=== PATIENT | female | born 1960 | race African-American/Black ===

== ENCOUNTER 2017-03-15 15:34 | Emergency (ER) | payer SELFPAY ==
[2017-03-15 18:24] VITALS: BP 140/74
[2017-03-15] MEDS ORDERED: OXYCODONE-ACETAMINOPHEN 5-325 MG TABLET PO ONE (18:39)
--- NOTE | 2017-03-15 18:40 | ER Document Report ---
HPI - HPI Patient complains to provider of: left leg pain Onset: Yesterday Onset/Duration: Persistent Quality of pain: Sharp Pain Level: 2 Context: Patient states she had done a lot of walking yesterday and then stepped into an elevator and felt a sudden pop in her left popliteal area. Patient states that the pain has persisted today. Patient states pain radiates into her left calf. Patient denies any chest pain or shortness of breath. Patient complains of increased pain with ambulation. Associated Symptoms: Other - Left calf and popliteal pain Exacerbated by: Movement, Walking Relieved by: Denies Similar symptoms previously: No Recently seen / treated by doctor: No - ROS ROS below otherwise negative: Yes Systems Reviewed and Negative: Yes All other systems reviewed and negative - CONSTITUTIONAL Constitutional: DENIES: Fever - NEURO Neurology: DENIES: Weakness - CARDIOVASCULAR Cardiovascular: DENIES: Chest pain - RESPIRATORY Respiratory: DENIES: Coughing - MUSCULOSKELETAL Musculoskeletal: REPORTS: Extremity pain. DENIES: Back Pain, Swelling - DERM Skin Color: Normal Skin Problems: None Past Medical History - General Information source: Patient - Social History Smoking Status: Never Smoker Chew tobacco use (# tins/day): No Frequency of alcohol use: None Drug Abuse: None Lives with: Family Family History: Reviewed & Not Pertinent - Past Medical History Cardiac Medical History: Reports: Hx Hypertension Endocrine Medical History: Reports: Hx Diabetes Mellitus Type 2 Renal/ Medical History: Denies: Hx Peritoneal Dialysis Surgical Hx: Negative - Immunizations Hx Diphtheria, Pertussis, Tetanus Vaccination: Yes Vertical Provider Document - CONSTITUTIONAL Agree With Documented VS: Yes Exam Limitations: No Limitations General Appearance: WD/WN, No Apparent Distress - INFECTION CONTROL TRAVEL OUTSIDE OF THE [place] IN LAST 30 DAYS: No - HEENT HEENT: Atraumatic, Normocephalic - NECK Neck: Normal Inspection - RESPIRATORY Respiratory: Breath Sounds Normal, No Respiratory Distress O2 Sat by Pulse Oximetry: 100 - CARDIOVASCULAR Cardiovascular: Regular Rate, Regular Rhythm, No Murmur Pulses: Normal: Posterior tibial, Dorsalis pedis - BACK Back: Normal Inspection - MUSCULOSKELETAL/EXTREMETIES Musculoskeletal/Extremeties: MAEW, Tender - Patient with exquisite tenderness with palpation of left popliteal area and left calf area, normal skin color and temperature overlying joint and calf. No overt edema. Notes: Normal squeeze test - NEURO Level of Consciousness: Awake, Alert, Appropriate Motor/Sensory: No Motor Deficit, No Sensory Deficit - DERM Integumentary: Warm, Dry Course - Re-evaluation Re-evalutation: 03/15/17 22:[address] Aguirre who reports that Doppler test was negative for DVT - Vital Signs Vital signs: Temp Pulse Resp BP Pulse Ox 98.4 F 72 16 140/74 H 100 03/15/17 18:19 03/15/17 18:19 03/15/17 18:19 03/15/17 18:19 03/15/17 18:19 - Diagnostic Test Radiology reviewed: Reports reviewed Discharge - Discharge Clinical Impression: Hx of essential hypertension, Muscle strain, Leg pain, left Condition: Stable Disposition: HOME, SELF-CARE Instructions: Leg Pain Nonspecific ([facility]), Muscle Strain ([facility]), Ice & Elevation ([facility]), Oral Narcotic Medication ([facility]), Use of Crutches ([facility]) Additional Instructions: Return immediately for any new or worsening symptoms Followup with your primary care provider, call tomorrow to make a followup appointment Weightbearing as tolerated Follow-up with orthopedic doctor for any continued pain or problems, call Saturday for an appointment Prescriptions: Oxycodone HCl/Acetaminophen [Percocet 5-325 mg Tablet] 1 tab PO ASDIR PRN #15 tablet PRN Reason: Forms: Elevated Blood Pressure Referrals: [facility] [Provider Group] - Follow up as needed [facility] [Provider Group] - Follow up as needed
--- NOTE | 2017-03-15 19:10 | RADIOLOGY REPORT (SQ) ---
EXAM DESCRIPTION: KNEE LEFT 4 VIEW COMPLETED DATE/TIME: 03/15/2017 7:00 pm REASON FOR STUDY: popliteal pain COMPARISON: None. NUMBER OF VIEWS: Four views. TECHNIQUE: AP, lateral, and both oblique radiographic images acquired of the left knee. LIMITATIONS: None. FINDINGS: MINERALIZATION: Normal. BONES: No acute fracture or dislocation. No worrisome bone lesions. JOINT: Mild osteoarthritis predominately affecting the patellofemoral compartment. No significant carlos int effusion. SOFT TISSUES: No soft tissue swelling. No radio-opaque foreign body. OTHER: No other significant finding. IMPRESSION: OSTEOARTHRITIS PATELLOFEMORAL COMPARTMENT. NO RADIOGRAPHIC EVIDENCE OF ACUTE INJURY. TECHNICAL DOCUMENTATION: JOB ID: [id number] [employer]- All Rights Reserved
--- NOTE | 2017-03-16 18:53 | XCELERA REPORT ---
[address] [address] Lower Extremity Venous Evaluation Name: ODELL MELO Age: 56 yrs Gender: Female : 1960 Patient Status: Emergency Patient Location: ER Study Date: 03/15/2017 08:23 PM Procedure: Color flow and duplex imaging of the veins of the left lower extremity as well as the right Common Femoral vein. Reason For Study: popliteal pain, calf pain Ordering Physician: YINKA MATHIS Performed By: Bunny Roldan Right Sided Venous Evaluation The right common femoral vein is fully compressible. Spontaneous and phasic flow is present in the right common femoral vein. Left Sided Venous Evaluation Normal vessel filling wall to wall, compression and augmentation as well as Colour flow down to the infrageniculate veins. Critical Findings Called in to Myah Mathis in the ER. Interpretation Summary No duplex evidence of DVT or obstruction in the left lower extremity nor in the right Common Femoral vein. : YINKA MATHIS > Davidson Aguirre
== END 2017-03-15 22:42 | disposition home or self-care (01) ==
LOC: ER 15:34
DX: S86.912A Strain of unspecified muscle(s) and tendon(s) at lower leg level, left leg, initial encounter (principal); X58.XXXA Exposure to other specified factors, initial encounter; I10 Essential (primary) hypertension; E11.9 Type 2 diabetes mellitus without complications
CPT/HCPCS: 93971; 99284

== ENCOUNTER 2017-11-30 14:38 | Observation (INO) | payer OTHER ==
[2017-11-30] MEDS ORDERED: NORMAL SALINE 1000 ML 1,000 ML IV ONE (15:22)
[2017-11-30] MEDS ORDERED: KETOROLAC TROMETHAMINE INJ/PF 30 MG/1 ML SDV IV ONE (15:23)
--- NOTE | 2017-11-30 15:25 | ER Document Report ---
ED General - General Chief Complaint: Abdominal Pain Stated Complaint: CHEST PAIN Time Seen by Provider: 11/30/17 14:57 Notes: Patient states that she woke up this morning with chest pain, abdominal pain, nausea, vomiting, diarrhea. Daughter was sick a few days ago with similar symptoms. Intermittent fever and chills. Complaining mostly of pain on the left side of her chest radiates up into her neck and down her arm. Very tender to the touch in the chest. Does not want to move her left arm because it hurts in her chest. Abdomen is diffusely achy with cramping and diarrhea and vomiting. EMS was called. EMS administered Zofran in route. TRAVEL OUTSIDE OF THE [place] IN LAST 30 DAYS: No - HPI Onset: Just prior to arrival - Related Data Allergies/Adverse Reactions: Penicillins Allergy (Verified 11/30/17 14:59) Past Medical History - General Information source: Patient - Social History Smoking Status: Former Smoker Chew tobacco use (# tins/day): No Frequency of alcohol use: None Drug Abuse: None Lives with: Family Family History: Reviewed & Not Pertinent Patient has suicidal ideation: No Patient has homicidal ideation: No - Past Medical History Cardiac Medical History: Reports: Hx Hypertension Endocrine Medical History: Reports: Hx Diabetes Mellitus Type 2 Renal/ Medical History: Denies: Hx Peritoneal Dialysis - Immunizations Hx Diphtheria, Pertussis, Tetanus Vaccination: Yes Review of Systems - Review of Systems Constitutional: Fever. denies: Malaise, Weakness EENT: denies: Ear pain, Nose pain, Throat pain, Difficulty swallowing, Mouth pain, Vertigo Cardiovascular: Chest pain. denies: Palpitations, Heart racing Respiratory: Hurts to breathe. denies: Cough, Short of breath, Wheezing Gastrointestinal: Abdominal pain, Diarrhea, Nausea, Vomiting Musculoskeletal: Joint pain, Muscle pain, Muscle stiffness, Neck pain. denies: Back pain Skin: denies: Change in color, Change in hair/nails, Dryness, Lesions Neurological/Psychological: Headaches. denies: Confusion, Dementia, Depression , Paralysis, Lost consciousness, Numbness Physical Exam - Vital signs Vitals: Resp Pulse Ox 15 100 11/30/17 15:00 11/30/17 15:00 Interpretation: Normal - General General appearance: Appears well, Alert - HEENT Head: Normocephalic Eyes: Normal Pupils: PERRL - Respiratory Respiratory status: No respiratory distress Chest status: Nontender Breath sounds: Normal Chest palpation: Normal - Cardiovascular Rhythm: Regular Heart sounds: Normal auscultation Murmur: No Notes: Palpation of the left costochondral sternal border reproduces pain. Unremarkable breast exam peer - Abdominal Inspection: Normal Distension: No distension Bowel sounds: Normal Tenderness: Tender, Other - All diffuse tenderness with light touch to the abdomen. Highly hyperactive bowel sounds Organomegaly: No organomegaly - Back Back: Normal, Nontender - Extremities General upper extremity: Normal inspection, Nontender, Normal color, Normal ROM , Normal temperature General lower extremity: Normal inspection, Nontender, Normal color, Normal ROM , Normal temperature, Normal weight bearing. No: Nitish's sign - Neurological Neuro grossly intact: Yes Cognition: Normal Orientation: AAOx4 [place] Coma Scale Eye Opening: Spontaneous Alex Coma Scale Verbal: Oriented Alex Coma Scale Motor: Obeys Commands Alex Coma Scale Total: 15 Speech: Normal Motor strength normal: LUE, RUE, LLE, RLE Sensory: Normal - Psychological Associated symptoms: Normal affect, Normal mood - Skin Skin Temperature: Warm Skin Moisture: Dry Skin Color: Normal Course - Re-evaluation Re-evalutation: 11/30/17 15:41 Patient with some obvious tenderness to palpation of the less constant cough left costochondral margin. Some of exaggerated pain response at this time. Will get chest x-ray, basic labs and reassess. Toradol for pain. IV fluids. Reassess. 11/30/17 17:24 Chest x-ray, EKG, labs unremarkable. Got a little bit of relief from Toradol. Patient states that she still in pain though. Told her that she was more likely going to go home and she said that she would come right back because she still in pain. Patient did come in by ambulance. Patient is not tachycardic or hypoxic. Has a normal chest x-ray. No recent surgeries. No significant risk factors for PE. Will consult with hospitalist for admit. - Vital Signs Vital signs: Temp Pulse Resp BP Pulse Ox 98.7 F 19 127/75 H 99 11/30/17 15:05 11/30/17 17:02 11/30/17 17:02 11/30/17 17:02 - Laboratory Result Diagrams: 11/30/17 15:05 11/30/17 15:05 Laboratory results interpreted by me: 11/30/17 11/30/17 15:05 15:05 RDW 14.5 H Seg Neutrophils % 86.5 H Lymphocytes % 8.1 L Glucose 119 H - EKG Interpretation by Me EKG shows normal: Sinus rhythm, [place], Intervals, QRS Complexes, ST-T Waves Discharge - Discharge Clinical Impression: Chest pain Qualifiers: Chest pain type: unspecified Qualified Code(s): R07.9 - Chest pain, unspecified Condition: Good Disposition: ADMITTED OBSERVATION Admitting Provider: Hospitalist Jb Castillo Unit Admitted: Telemetry Referrals: AMAN LEON MD [Primary Care Provider] - Follow up as needed
[2017-11-30 15:37] LABS: ALANINE AMINOTRANSFERASE 25 U/L (9-52); ALBUMIN 4.2 g/dL (3.5-5.0); ALKALINE PHOSPHATASE 97 U/L (38-126); ANION GAP 12 (5-19); ASPARTATE AMINO TRANSFERASE 25 U/L (14-36); BILIRUBIN,DIRECT 0.4 mg/dL (0.0-0.4); BILIRUBIN,TOTAL 0.8 mg/dL (0.2-1.3); BLOOD UREA NITROGEN 16 mg/dL (7-20); CALCIUM 9.5 mg/dL (8.4-10.2); CARBON DIOXIDE 24 mmol/L (22-30); CHLORIDE 107 mmol/L (98-107); CREATINE KINASE 83 U/L (30-135); GLUCOSE 119 mg/dL (75-110); LIPASE 101.4 U/L (23-300); POTASSIUM 4.1 mmol/L (3.6-5.0)
[2017-11-30 15:45] LABS: ABSOLUTE LYMPHOCYTES (AUTO) 0.5 10^3/uL (0.5-4.7); ABSOLUTE MONOCYTES (AUTO) 0.3 10^3/uL (0.1-1.4); ABSOLUTE NEUT (AUTO) 5.4 10^3/uL (1.7-8.2); BASOPHILS % (AUTO) 0.2 % (0-2); EOSINOPHILS % (AUTO) 0.6 % (0-6); HEMATOCRIT 38.2 % (36.0-47.0); HEMOGLOBIN 12.7 g/dL (12.0-15.5); LYMPHOCYTES % (AUTO) 8.1 % (13-45); MEAN CORPUSCULAR HEMOGLOBIN 28.3 pg (27.0-33.4); MEAN CORPUSCULAR HGB CONC 33.2 g/dL (32.0-36.0); MEAN CORPUSCULAR VOLUME 85 fl (80-97); MONOCYTES % (AUTO) 4.6 % (3-13); PLATELET COUNT 272 10^3/uL (150-450); RED BLOOD COUNT 4.47 10^6/uL (3.72-5.28); RED CELL DISTRIBUTION WIDTH 14.5 % (11.5-14.0); SEGMENTED NEUTROPHILS % (AUTO) 86.5 % (42-78); TOTAL CELLS COUNTED % (AUTO) 100 %; WHITE BLOOD COUNT 6.2 10^3/uL (4.0-10.5)
[2017-11-30 15:49] LABS: CREATINE KINASE MB 0.68 ng/mL (<4.55); TROPONIN I < 0.012 ng/mL
--- NOTE | 2017-11-30 15:50 | RADIOLOGY REPORT (SQ) ---
EXAM DESCRIPTION: CHEST SINGLE VIEW COMPLETED DATE/TIME: 11/30/2017 3:36 pm REASON FOR STUDY: chest pain COMPARISON: None. EXAM PARAMETERS: NUMBER OF VIEWS: One view. TECHNIQUE: Single frontal radiographic view of the chest acquired. RADIATION DOSE: NA LIMITATIONS: None. FINDINGS: LUNGS AND PLEURA: No acute opacities, masses or pneumothorax. No pleural effusion. MEDIASTINUM AND HILAR STRUCTURES: No masses. Contour normal. HEART AND VASCULAR STRUCTURES: Heart normal in size. Normal vasculature. BONES: No acute findings. HARDWARE: None in the chest. OTHER: No other significant finding. IMPRESSION: NO ACUTE RADIOGRAPHIC FINDING IN THE CHEST. TECHNICAL DOCUMENTATION: JOB ID: [id number] [place]-72 2010 [employer]- All Rights Reserved Reading location - IP/workstation name: [email or web address]
[2017-11-30 17:11] LABS: APPEARANCE,URINE CLEAR; BILIRUBIN,URINE NEGATIVE (NEGATIVE); COLOR,URINE STRAW; GLUCOSE, URINE NEGATIVE (NEGATIVE); KETONES,URINE NEGATIVE (NEGATIVE); LEUKOCYTE ESTERASE,URINE NEGATIVE (NEGATIVE); NITRITE,URINE NEGATIVE (NEGATIVE); PROTEIN,URINE NEGATIVE (NEGATIVE); URINE SPECIFIC GRAVITY 1.006; UROBILINOGEN,URINE NEGATIVE mg/dL (<2.0)
[2017-11-30] MEDS ORDERED: MORPHINE SULFATE 10 MG/ML INJ IV ONE ×2 (17:22→20:00)
[2017-11-30] MEDS ORDERED: MAG HYDROX/AL HYDROX/SIMETH SUSP 30 ML UDCUP PO PRN (17:45)
[2017-11-30] MEDS ORDERED: MAGNESIUM HYDROXIDE SUSP 30 ML UDCUP PO PRN (17:45)
[2017-11-30] MEDS ORDERED: MORPHINE SULFATE 10 MG/ML INJ IV PRN (17:45)
[2017-11-30] MEDS ORDERED: DEXTROSE 5%-WATER 1000 ML 1,000 ML IV PRN (17:45)
[2017-11-30] MEDS ORDERED: PROMETHAZINE HCL INJ 25 MG/1 ML VIAL IV PRN (17:45)
[2017-11-30] MEDS ORDERED: TEMAZEPAM 15 MG CAPSULE PO PRN (17:45)
--- NOTE | 2017-11-30 18:05 | PDOC H&P ---
History of Present Illness Admission Date/PCP: 11/30/17 17:41 AMAN LEON MD History of Present Illness: ODELL MELO is a 57 year old female with a history of hypertension who presented to the emergency department today via EMS with a chief complaint of lower abdominal pain that radiates to her left chest, then her right chest, and left shoulder and neck. Her symptoms began this morning. She does not know of any precipitating factors. Thus far she does not know of any alleviating factors. She does not have a history of similar symptoms. She reports associated subjective fever, chills, nausea, vomiting, and diarrhea. Furthermore she felt lightheaded. She does not have a history of cardiac disease. Her only medical problem is hypertension. She takes Norvasc 2.5 mg daily for systolic blood pressures greater than 130. In the ED, her workup has been unremarkable. She has not been hypertensive, tachycardic, or hypoxic. Her chest x-ray and ECG were also normal. Past Medical History Cardiac Medical History: Reports: Hypertension Endocrine Medical History: Reports: Diabetes Mellitus Type 2 Social History Lives with: Family Smoking Status: Former Smoker Hx Recreational Drug Use: No Hx Prescription Drug Abuse: No - Advance Directive Resuscitation Status: Full Code Family History Family History: Reviewed & Not Pertinent Parental Family History Reviewed: No Children Family History Reviewed: No Sibling(s) Family History Reviewed.: No Medication/Allergy Home Medications: Oxycodone HCl/Acetaminophen [Percocet 5-325 mg Tablet] 1 tab PO ASDIR PRN #15 tablet 03/15/17 Amlodipine Besylate [Norvasc 2.5 mg Tablet] 2.5 mg PO DAILY 11/30/17 Allergies/Adverse Reactions: Penicillins Allergy (Verified 11/30/17 14:59) Review of Systems Constitutional: ABSENT: chills, fever(s), headache(s), weight gain, weight loss Cardiovascular: ABSENT: chest pain, dyspnea on exertion, edema, orthropnea, palpitations Respiratory: ABSENT: cough, hemoptysis Gastrointestinal: ABSENT: abdominal pain, constipation, diarrhea, hematemesis, hematochezia, nausea, vomiting Musculoskeletal: ABSENT: joint swelling Neurological: ABSENT: abnormal gait, abnormal speech, confusion, dizziness, focal weakness, syncope Psychiatric: ABSENT: anxiety, depression, homidical ideation, suicidal ideation Hematologic/Lymphatic: ABSENT: easy bleeding, easy bruising Physical Exam Vital Signs: Temp Pulse Resp BP Pulse Ox 98.7 F 19 127/75 H 99 11/30/17 15:05 11/30/17 17:02 11/30/17 17:02 11/30/17 17:02 General appearance: PRESENT: no acute distress, cooperative, obese Head exam: PRESENT: atraumatic, normocephalic Eye exam: PRESENT: EOMI, PERRLA Neck exam: ABSENT: carotid bruit, JVD, lymphadenopathy, thyromegaly Respiratory exam: PRESENT: clear to auscultation marbella. ABSENT: rales, rhonchi, wheezes Cardiovascular exam: PRESENT: RRR. ABSENT: diastolic murmur, rubs, systolic murmur GI/Abdominal exam: PRESENT: normal bowel sounds, soft, tenderness. ABSENT: distended, firm, guarding, mass, organolmegaly, rebound Rectal exam: PRESENT: deferred Extremities exam: PRESENT: full ROM. ABSENT: calf tenderness, clubbing, pedal edema Neurological exam: PRESENT: alert, awake, oriented to person, oriented to place , oriented to time, oriented to situation, CN II-XII grossly intact. ABSENT: motor sensory deficit Psychiatric exam: PRESENT: appropriate affect, normal mood. ABSENT: homicidal ideation, suicidal ideation Skin exam: PRESENT: dry, intact, warm. ABSENT: cyanosis, rash Results Impressions: Chest X-Ray 11/30/17 15:22 IMPRESSION: NO ACUTE RADIOGRAPHIC FINDING IN THE CHEST. Assessment & Plan - Diagnosis (1) Abdominal pain Qualifiers: Abdominal location: lower abdomen, unspecified Qualified Code(s): R10.30 - Lower abdominal pain, unspecified Is this a current diagnosis for this admission?: Yes Plan: Her symptoms are nonspecific. Her pain seems out of proportion to her workup thus far. With that in mind, I will go ahead and obtain a CT scan of her abdomen and pelvis. In the meantime I will continue her on IV fluids. But, I will start her on clear liquid diet. She has acetaminophen, Percocet, and morphine as needed for severe pain. (2) Hypertension Qualifiers: Hypertension type: essential hypertension Qualified Code(s): I10 - Essential (primary) hypertension Is this a current diagnosis for this admission?: Yes Plan: Her blood pressures well controlled. Continue amlodipine 2.5 mg daily. (3) Obesity (BMI 30-39.9) Is this a current diagnosis for this admission?: Yes (4) Chest pain Qualifiers: Chest pain type: precordial pain Qualified Code(s): R07.2 - Precordial pain Is this a current diagnosis for this admission?: Yes Plan: Her pain was reproducible with palpation. I do not think this represents angina simply because she described having abdominal pain that radiated up into her chest. She does not report GERD. She does not report dysphagia or odynophagia either. Nevertheless, I will will also order a CT of the chest with angiogram. - Time Time Spent: 50 to 70 Minutes Smoking Cessation Education: 3 to 10 minutes Medications reviewed and adjusted accordingly: Yes Anticipated discharge: Home Within: within 24 hours - Inpatient Certification Based on my medical assessment, after consideration of the patient's comorbidities, presenting symptoms, or acuity I expect that the services needed warrant INPATIENT care.: Yes I certify that my determination is in accordance with my understanding of Medicare's requirements for reasonable and necessary INPATIENT services [42 CFR 412.3e].: Yes Medical Necessity: Need for Pain Control
--- NOTE | 2017-11-30 19:02 | EKG REPORT ---
SEVERITY:- NORMAL ECG - SINUS RHYTHM : Confirmed by: Karin Montero 30-Nov-2017 19:02:12
[2017-11-30] MEDS: OXYCODONE-ACETAMINOPHEN 5-325 MG TABLET PO PRN (21:32)
--- NOTE | 2017-11-30 21:57 | RADIOLOGY REPORT (SQ) ---
EXAM DESCRIPTION: CTA CHEST COMPLETED DATE/TIME: 11/30/2017 9:43 pm REASON FOR STUDY: Chest pain, rule out PE COMPARISON: None. TECHNIQUE: CT scan of the chest performed using helical scanning technique with dynamic intravenous contrast injection. Images reviewed with lung, soft tissue and bone windows. Reconstructed coronal and sagittal MPR images reviewed. Additional 3 dimensional post-processing performed to develop Maximal Intensity Projection images (OR P). All images stored on PACS. All CT scanners at this facility use dose modulation, iterative reconstruction, and/or weight based d osing when appropriate to reduce radiation dose to as low as reasonably achievable (ALARA). [facility]: Dose Right [facility]: CareDose [facility]: Dose Right [facility]: Teradose 4D [facility]: [employer] CONTRAST TYPE AND DOSE: contrast/concentration: Isovue 370.00 mg/ml; Total Contrast Delivered: 73.0 ml; Total Saline Delivered: 110.0 ml Contrast bolus adequate for pulmonary arteries and aorta. RENAL FUNCTION: BUN 16 creatinine 0.77. RADIATION DOSE: CT Rad equipment meets quality standard of care and radiation dose reduction techniq ues were employed. CTDIvol: 14.0 - 22.9 mGy. DLP: 2756 mGy-cm. . LIMITATIONS: None. FINDINGS: LUNGS AND PLEURA: Small subpleural pulmonary nodules. 5 mm nodule in the right middle lob e (series 4, image 31), 8 mm nodule in the left lower lobe (series 4, image 27) and 4 mm nodule in th e left lower lobe (series 4, image 31). No focal infiltrates. No pleural effusion. AORTA AND GREAT VESSELS: No aneurysm. Contrast bolus not optimized for the aorta. HEART: No pericardial effusion. No significant coronary artery calcifications. PULMONARY ARTERIES: No emboli visualized in the main pulmonary arteries or the segmental branches. HILAR AND MEDIASTINAL STRUCTURES: No identified masses or abnormal nodes. HARDWARE: None in the chest. UPPER ABDOMEN: No significant findings. Limited exam. THYROID AND OTHER SOFT TISSUES: No masses. No adenopathy. BONES: No acute or significant finding. 3D MIPS: Confirm above findings. OTHER: No other significant finding. IMPRESSION: 1. NORMAL CTA OF THE CHEST. NO PULMONARY EMBOLI. 2. NO ACUTE FINDINGS IN THE CHEST. THERE ARE SMALL SUBPLEURAL PULMONARY NODULES DESCRIBED. FOLL OW-UP CLINICALLY INDICATED. COMMENT: FLEISCHNER CRITERIA FOR FOLLOW-UP OF PULMONARY NODULES Incidentally detected new nodules in persons 35 or older. HIGH RISK: History of smoking or other known risk factors. 6-8mm multiple solid nodules: LOW RISK: CT 3-6 mo; then consider CT 18-24 mo. HIGH RISK: CT 3-6 mo; t hen CT 18-24 mo. Quality ID # [id number]: Final reports with documentation of one or more dose reduction techniques (e.g., Au tomated exposure control, adjustment of the mA and/or kV according to patient size, use of iterative reconstruction technique) TECHNICAL DOCUMENTATION: JOB ID: [id number] [employer]- All Rights Reserved Reading location - IP/workstation name: [email or web address]
--- NOTE | 2017-11-30 22:00 | RADIOLOGY REPORT (SQ) ---
EXAM DESCRIPTION: CT ABD/PELVIS WITH IV ORAL COMPLETED DATE/TIME: 11/30/2017 9:43 pm REASON FOR STUDY: Chest pain, rule out PE, abdominal pain COMPARISON: None. TECHNIQUE: CT scan of the abdomen and pelvis performed using helical scanning technique with dynamic intravenous contrast injection. No oral contrast. Images reviewed with lung, soft tissue, and bone windows. Reconstructed coronal and sagittal MPR images reviewed. Delayed images for evaluation of the urinary system also acquired. All images stored on PACS. All CT scanners at this facility use dose modulation, iterative reconstruction, and/or weight based d osing when appropriate to reduce radiation dose to as low as reasonably achievable (ALARA). [facility]: Dose Right [facility]: CareDose [facility]: Dose Right [facility]: Teradose 4D [facility]: [employer] CONTRAST TYPE AND DOSE: 73 mL Isovue 370- low osmolar. RENAL FUNCTION: BUN 16 creatinine 0.77. RADIATION DOSE: . LIMITATIONS: None. FINDINGS: LOWER CHEST: No significant findings. No nodules or infiltrates. LIVER: Normal size. No masses. No dilated ducts. SPLEEN: Normal size. No focal lesions. PANCREAS: No masses. No significant calcifications. No adjacent inflammation or peripancreatic fluid collections. Pancreatic duct not dilated. GALLBLADDER: No identified stones by CT criteria. No inflammatory changes to suggest cholecystitis. ADRENAL GLANDS: No significant masses or asymmetry. RIGHT KIDNEY AND URETER: Cortical cyst. No solid masses. No significant calcifications. No hydro nephrosis or hydroureter. LEFT KIDNEY AND URETER: No solid masses. No significant calcifications. No hydronephrosis or hydr oureter. AORTA AND VESSELS: No aneurysm. No dissection. Renal arteries, SMA, celiac without stenosis. RETROPERITONEUM: No retroperitoneal adenopathy, hemorrhage or masses. BOWEL AND PERITONEAL CAVITY: No masses or inflammatory changes. No free fluid or peritoneal masses. APPENDIX: Not visualized. PELVIS: No mass. No free fluid. Normal bladder. ABDOMINAL WALL: No masses. No hernias. BONES: No significant or acute findings. OTHER: No other significant finding. IMPRESSION: NO SIGNIFICANT OR ACUTE FINDING IN THE ABDOMEN OR PELVIS ON CT SCAN WITH IV CONTRAST. I NCIDENTAL CORTICAL CYST IN THE RIGHT KIDNEY. TECHNICAL DOCUMENTATION: JOB ID: [id number] Quality ID # [id number]: Final reports with documentation of one or more dose reduction techniques (e.g., Au tomated exposure control, adjustment of the mA and/or kV according to patient size, use of iterative reconstruction technique) 2010 [employer]- All Rights Reserved Reading location - IP/workstation name: [email or web address]
[2017-12-01] MEDS: ACETAMINOPHEN 325 MG TABLET PO PRN ×2 (01:19→06:45)
[2017-12-01] MEDS: OXYCODONE-ACETAMINOPHEN 5-325 MG TABLET PO PRN (03:11)
[2017-12-01] MEDS ORDERED: AMLODIPINE BESYLATE 2.5 MG TABLET PO SCH (10:00)
[2017-12-01] MEDS ORDERED: ENOXAPARIN SODIUM INJ 40 MG/0.4 ML DISP.SYRIN SUBCUT SCH (10:00)
--- NOTE | 2017-12-01 11:51 | PDOC DISCHARGE SUMMARY ---
General - Admit/Disc Date/PCP Admission Date/Primary Care Provider: 11/30/17 17:41 AMAN LEON MD Discharge Date: 12/01/17 - Discharge Diagnosis (1) Abdominal pain Is this a current diagnosis for this admission?: Yes Summary: resolved (2) Hypertension Is this a current diagnosis for this admission?: Yes Summary: BP controlled (3) Obesity (BMI 30-39.9) Is this a current diagnosis for this admission?: Yes (4) Chest pain Is this a current diagnosis for this admission?: Yes Summary: resolved. Troponin x 3 (-) - Additional Information Resuscitation Status: Full Code Discharge Diet: Regular Discharge Activity: Activity As Tolerated Home Medications: Amlodipine Besylate [Norvasc 2.5 mg Tablet] 2.5 mg PO DAILY 11/30/17 History of Present Illness History of Present Illness: ODELL MELO is a 57 year old female with a history of hypertension who presented to the emergency department today via EMS with a chief complaint of lower abdominal pain that radiates to her left chest, then her right chest, and left shoulder and neck. Her symptoms began this morning. She does not know of any precipitating factors. Thus far she does not know of any alleviating factors. She does not have a history of similar symptoms. She reports associated subjective fever, chills, nausea, vomiting, and diarrhea. Furthermore she felt lightheaded. She does not have a history of cardiac disease. Her only medical problem is hypertension. She takes Norvasc 2.5 mg daily for systolic blood pressures greater than 130. In the ED, her workup has been unremarkable. She has not been hypertensive, tachycardic, or hypoxic. Her chest x-ray and ECG were also normal. Hospital Course Hospital Course: Ms Melo was admitted with the above symptoms. Her ED workup was unremarkable. Repeat troponin x 2 were normal. CTA chest did not show pulmonary emboli. Incident pulmonary nodules were seen. The abdominal CT was unremarkable except for a renal cyst. She was told to follow up with her PCP regarding the pulmonary nodules. Physical Exam Vital Signs: Temp Pulse Resp BP Pulse Ox 98.1 F 59 L 18 95/54 L 96 12/01/17 07:22 12/01/17 07:22 12/01/17 07:22 12/01/17 07:22 12/01/17 07:22 Intake & Output 11/30/17 12/01/17 12/02/17 06:59 06:59 06:59 Intake Total 300 Output Total 1500 Balance -1200 Weight 95.6 kg General appearance: PRESENT: no acute distress, obese Head exam: PRESENT: atraumatic, normocephalic Eye exam: PRESENT: EOMI, PERRLA Respiratory exam: PRESENT: clear to auscultation marbella. ABSENT: rales, rhonchi, wheezes Cardiovascular exam: PRESENT: RRR. ABSENT: diastolic murmur, rubs, systolic murmur GI/Abdominal exam: PRESENT: normal bowel sounds, soft. ABSENT: distended, guarding, mass, organolmegaly, rebound, tenderness Neurological exam: PRESENT: alert, awake, oriented to person, oriented to place , oriented to time, oriented to situation, CN II-XII grossly intact. ABSENT: motor sensory deficit Psychiatric exam: PRESENT: appropriate affect, normal mood. ABSENT: homicidal ideation, suicidal ideation Results Laboratory Results: 11/30/17 12/01/17 12/01/17 20:57 03:02 08:50 Troponin I < 0.012 < 0.012 < 0.012 Impressions: Abdomen/Pelvis CT 11/30/17 00:00 IMPRESSION: NO SIGNIFICANT OR ACUTE FINDING IN THE ABDOMEN OR PELVIS ON CT SCAN WITH IV CONTRAST. INCIDENTAL CORTICAL CYST IN THE RIGHT KIDNEY. Chest/Abdomen CTA 11/30/17 00:00 IMPRESSION: 1. NORMAL CTA OF THE CHEST. NO PULMONARY EMBOLI. 2. NO ACUTE FINDINGS IN THE CHEST. THERE ARE SMALL SUBPLEURAL PULMONARY NODULES DESCRIBED. FOLLOW-UP CLINICALLY INDICATED. Chest X-Ray 11/30/17 15:22 IMPRESSION: NO ACUTE RADIOGRAPHIC FINDING IN THE CHEST. Qualifiers - * PATEINT BEING DISCHARGED WITH ANY OF THE FOLLOWING DIAGNOSIS?: No Plan Time Spent: Less than 30 Minutes
[2017-12-01 12:39] VITALS: BP 102/48
== END 2017-12-01 12:30 | disposition home or self-care (01) ==
LOC: ER 14:38 → EH 17:41 → 4N 18:59
PROVIDERS: ADMIT Family Medicine; ATTEND Family Medicine
DX: R07.2 Precordial pain (principal); R10.30 Lower abdominal pain, unspecified; I10 Essential (primary) hypertension; E11.9 Type 2 diabetes mellitus without complications; E66.9 Obesity, unspecified; Z68.30 Body mass index [BMI] 30.0-30.9, adult
CPT/HCPCS: 93005; 99285; 96361; 96374; 96375; 36415 ×2; 82553; 82550; 83690; 85025; 80053; 81001; 84484 ×2; 71045; 71275; 74177; 93010; J3490; J1885; J2270; J2550; J7060; J7030

== ENCOUNTER 2019-10-20 18:43 | Emergency (ER) | payer SELFPAY ==
[2019-10-20] MEDS ORDERED: HYDROCHLOROTHIAZIDE 25 MG TABLET PO ONE (20:05)
--- NOTE | 2019-10-20 20:07 | ER Document Report ---
ED Medical Screen (RME) - General Chief Complaint: Leg Swelling Stated Complaint: LEGS SWELLING Time Seen by Provider: 10/20/19 19:59 Notes: HPI: 59-year-old female with history of hypertension who stopped her medications approximately a year ago and does not remember what she was taking presenting for swelling of the bilateral legs and ankles today. Patient does stand at work for many hours at a time. States today was the first time she noticed significantly increased swelling of the legs no chest pain no shortness of breath. Does not follow with a primary care provider at this time I have greeted and performed a rapid initial assessment of this patient. A comprehensive ED assessment and evaluation of the patient, analysis of test results and completion of the medical decision making process will be conducted by additional ED providers PHYSICAL EXAMINATION: GENERAL: Well-appearing, well-nourished and in no acute distress. HEAD: Atraumatic, normocephalic. EYES: sclera anicteric, conjunctiva are normal. ENT: Moist mucous membranes. NECK: Normal range of motion LUNGS: Normal work of breathing, clear to auscultation HEART: 2+ radial pulses bilaterally, regular rate and rhythm ABD: limited by positioning for exam in triage. EXTREMITIES: 1+ pitting edema extending from the knees through the ankles bilaterally. No cyanosis. NEUROLOGICAL: No focal neurological deficits. Moves all extremities spontaneously and on command. PSYCH: Normal mood, normal affect. SKIN: Warm, Dry, normal turgor, no rashes or lesions noted. TRAVEL OUTSIDE OF THE [place] IN LAST 30 DAYS: No - Related Data Allergies/Adverse Reactions: Penicillins Allergy (Verified 11/30/17 14:59) Past Medical History - Past Medical History Cardiac Medical History: Reports: Hx Hypertension Endocrine Medical History: Reports: Hx Diabetes Mellitus Type 2 Renal/ Medical History: Denies: Hx Peritoneal Dialysis - Immunizations Hx Diphtheria, Pertussis, Tetanus Vaccination: Yes Physical Exam - Vital signs Vitals: Temp Pulse Resp BP Pulse Ox 97.9 F 72 18 171/77 H 99 10/20/19 19:14 10/20/19 19:14 10/20/19 19:14 10/20/19 19:14 10/20/19 19:14 Course - Vital Signs Vital signs: Temp Pulse Resp BP Pulse Ox 97.9 F 72 18 171/77 H 99 10/20/19 19:14 10/20/19 19:14 10/20/19 19:14 10/20/19 19:14 10/20/19 19:14
[2019-10-20 21:39] LABS: ANION GAP 8 (5-19); BLOOD UREA NITROGEN 15 mg/dL (7-20); CALCIUM 9.4 mg/dL (8.4-10.2); CARBON DIOXIDE 28 mmol/L (22-30); CHLORIDE 106 mmol/L (98-107); GLUCOSE 91 mg/dL (75-110); POTASSIUM 3.9 mmol/L (3.6-5.0)
--- NOTE | 2019-10-21 01:22 | ER Document Report ---
ED General - General Chief Complaint: Leg Swelling Stated Complaint: LEGS SWELLING Time Seen by Provider: 10/20/19 19:59 TRAVEL OUTSIDE OF THE [place] IN LAST 30 DAYS: No - HPI Notes: 59-year-old female presents with worsening edema of both feet over several days. Patient's job involves standing and prolonged walking. She denies any shortness of breath or chest discomfort. No urinary symptoms. No back pain. Patient has a history of hypertension but is not taking treatment for this. - Related Data Allergies/Adverse Reactions: Penicillins Allergy (Verified 11/30/17 14:59) Past Medical History - General Information source: Patient - Social History Smoking Status: Never Smoker Family History: Reviewed & Not Pertinent Patient has suicidal ideation: No Patient has homicidal ideation: No - Past Medical History Cardiac Medical History: Reports: Hx Hypertension Endocrine Medical History: Reports: Hx Diabetes Mellitus Type 2 Renal/ Medical History: Denies: Hx Peritoneal Dialysis - Immunizations Hx Diphtheria, Pertussis, Tetanus Vaccination: Yes Review of Systems - Review of Systems Notes: Constitutional: Negative for fever. HENT: Negative for sore throat. Eyes: Negative for visual changes. Cardiovascular: Negative for chest pain. Respiratory: Negative for shortness of breath. Gastrointestinal: Negative for abdominal pain, vomiting or diarrhea. Genitourinary: Negative for dysuria. Musculoskeletal: Negative for back pain. Skin: Negative for rash. Neurological: Negative for headaches, weakness or numbness. 10 point ROS negative except as marked above and in HPI. Physical Exam - Vital signs Vitals: Temp Pulse Resp BP Pulse Ox 97.9 F 72 18 171/77 H 99 10/20/19 19:14 10/20/19 19:14 10/20/19 19:14 10/20/19 19:14 10/20/19 19:14 - Notes Notes: GENERAL: Well-developed well-nourished appearing in no acute distress. SKIN: Good turgor no rashes. HEAD: Normocephalic atraumatic. EYES: PERRLA. EOMI. Conjunctivae and sclerae clear. EARS: CANALS AND TMS CLEAR. NOSE: CLEAR. MOUTH: Moist mucosa. Good dentition. No stridor or edema. No drooling. NECK: Supple. No masses or thyromegaly. No adenopathy. Carotids 2+ without bruits. No JVD. BACK: Symmetrical without tenderness. CHEST: Respirations unlabored. Breath sounds clear and symmetrical. HEART: Regular rhythm. No murmur gallop or rub. ABDOMEN: Mildly obese. Soft nontender without masses, organomegaly or rebound. Bowel sounds normally active. No bruits. GENITALIA: Deferred. EXTREMITIES: 1+ bilateral pedal edema. No calf tenderness. Cap refill less than 1.5 seconds. Dorsalis pedis and posterior tibial pulses 3+ and symmetrical. NEUROLOGICAL: GCS 15. Alert and oriented x3. Normal gait. Fluent speech. Cranial nerves II through XII intact. Sensorimotor and cerebellar normal. Normal tone. PSYCHIATRIC: Appropriate affect. Course - Re-evaluation Re-evalutation: 10/21/19 03:17 Normal urinalysis. Normal chest x-ray. Elevated blood pressure and peripheral edema. I will start this lady on hydrochlorothiazide and refer her to PMD for outpatient follow-up. - Vital Signs Vital signs: Temp Pulse Resp BP Pulse Ox 97.9 F 72 18 170/100 H 99 10/20/19 19:14 10/20/19 19:14 10/20/19 19:14 10/20/19 20:56 10/20/19 19:14 - Laboratory Result Diagrams: 10/20/19 21:07 Discharge - Discharge Clinical Impression: Bilateral lower extremity edema, Essential hypertension Condition: Stable Disposition: HOME, SELF-CARE Prescriptions: Hydrochlorothiazide [Hydrodiuril 25 mg Tablet] 25 mg PO QAM #30 tablet Forms: Elevated Blood Pressure, Return to Work
[2019-10-21 01:44] LABS: APPEARANCE,URINE CLEAR; BILIRUBIN,URINE NEGATIVE (NEGATIVE); COLOR,URINE STRAW; GLUCOSE, URINE NEGATIVE (NEGATIVE); KETONES,URINE NEGATIVE (NEGATIVE); PROTEIN,URINE NEGATIVE (NEGATIVE); URINE SPECIFIC GRAVITY 1.011; UROBILINOGEN,URINE NEGATIVE mg/dL (<2.0)
--- NOTE | 2019-10-21 01:59 | RADIOLOGY REPORT (SQ) ---
EXAM DESCRIPTION: XR CHEST 2 VIEWS COMPLETED DATE/TME: 10/21/2019 01:18 CLINICAL HISTORY: 59 years Female, HTN COMPARISON: None. NUMBER OF VIEWS/TECHNIQUE: 2, Frontal, Lateral FINDINGS: Increased lung volume, clear parenchyma, normal cardiac silhouette, and intact bony thorax. IMPRESSION: No acute cardiopulmonary findings.
[2019-10-21 03:32] VITALS: BP 149/69
== END 2019-10-21 03:27 | disposition home or self-care (01) ==
LOC: ER 18:43
DX: R60.0 Localized edema (principal); I10 Essential (primary) hypertension; E11.9 Type 2 diabetes mellitus without complications
CPT/HCPCS: 36415; 71046; 80048; 81001; 99283